=== PATIENT | male | born 1965 | race African-American/Black ===

== ENCOUNTER 2022-11-17 03:45 | Observation (INO) | payer OTHER ==
[2022-11-17 04:02] VITALS: BMI 17.4
[2022-11-17] MEDS ORDERED: methaDONE HCL 40 MG DISPERSABLE TABLET PO SCH (08:30)
[2022-11-17] MEDS ORDERED: DOXYCYCLINE HYCLATE 100 MG VIAL ONE (08:40)
[2022-11-17] MEDS ORDERED: ENOXAPARIN NA (PORCINE) 40 MG/0.4 ML DISP.SYRIN SQ ONE (08:40)
[2022-11-17] MEDS ORDERED: CEFTRIAXONE 1 GM/50 ML BAG ONE (08:41)
[2022-11-17] MEDS ORDERED: methaDONE HCL 40 MG DISPERSABLE TABLET ONE (08:43)
[2022-11-17] MEDS ORDERED: methaDONE HCL 10 MG TABLET ONE (08:44)
[2022-11-17] MEDS ORDERED: REMDESIVIR 200 MG in SODIUM CHLORIDE 250 ML IVPB ONE (09:00)
[2022-11-17] MEDS: methaDONE 80 MG, methaDONE 20 MG PO SCH (09:13)
[2022-11-17] MEDS: ENOXAPARIN NA (PORCINE) 40 MG/0.4 ML DISP.SYRIN SQ SCH (09:13)
[2022-11-17] MEDS ORDERED: DOXYCYCLINE INJECTION 100 MG in DEXTROSE 5%-WATER 100 ML IVPB SCH (10:00)
[2022-11-17] MEDS ORDERED: CEFTRIAXONE 1 GM in DEXTROSE 5%-WATER - 50 ML IVPB SCH (10:00)
[2022-11-17] MEDS: BICTEGRAV/EMTRICIT/TENOFOV (BIKTARVY) 50-200-25 MG TABLET PO SCH (10:25)
[2022-11-17 13:44] LABS: HEMATOCRIT 28.4 % (35.4-49); MCH 26.2 pg (25.7-33.7); MCHC 31.7 g/dl (32.0-35.9); MEAN CELL VOLUME 82.6 fl (80-96); MEAN PLT VOLUME 8.5 fl (7.5-11.1); PLATELET COUNT 295 10^3/uL (134-434); RBC 3.44 M/mm3 (4.00-5.60); RDW 14.2 % (11.9-15.9); WHITE BLOOD COUNT 3.9 K/mm3 (4.0-10.0)
[2022-11-17 14:17] LABS: ANISOCYTOSIS 0; HELMET CELLS 0; HOWELL-JOLLY BODIES 0; MACROCYTOSIS 0; OVALOCYTE 0; ROULEAU 0; SICKELED CELLS 0; TARGET CELLS 0; TEAR DROP CELLS 0; TOXIC GRANULATION 0
[2022-11-17 14:21] LABS: CALCIUM 8.5 mg/dL (8.5-10.1)
[2022-11-17 14:22] LABS: MAGNESIUM 1.7 mg/dL (1.8-2.4)
[2022-11-17 14:25] LABS: CREATININE 1.1 mg/dL (0.55-1.3)
[2022-11-17 14:32] LABS: ALBUMIN 2.3 g/dl (3.4-5.0); BILIRUBIN,TOTAL 0.2 mg/dL (0.2-1); BLOOD UREA NITROGEN 20.5 mg/dL (7-18); PHOSPHOROUS 2.9 mg/dL (2.5-4.9); POTASSIUM 4.1 mmol/L (3.5-5.1); TOT PROT 8.2 g/dl (6.4-8.2)
[2022-11-18] MEDS ORDERED: ACETAMINOPHEN 1000 MG/100 ML BAG IVPB PRN (00:58)
[2022-11-18] MEDS: methaDONE 80 MG, methaDONE 20 MG PO SCH (05:28)
[2022-11-18 10:15] LABS: BASO % 0.7 % (0-2.0); EOS % 1.2 % (0-4.5); HEMATOCRIT 28.2 % (35.4-49); HEMOGLOBIN 9.5 GM/dL (11.7-16.9); LYMPH % 14.3 % (8-40); MCH 26.7 pg (25.7-33.7); MCHC 33.5 g/dl (32.0-35.9); MEAN CELL VOLUME 79.8 fl (80-96); MEAN PLT VOLUME 7.7 fl (7.5-11.1); MONO % 10.2 % (3.8-10.2); NEUT % 73.6 % (42.8-82.8); PLATELET COUNT 283 10^3/uL (134-434); RBC 3.54 M/mm3 (4.00-5.60)
[2022-11-18 10:19] LABS: POTASSIUM 3.7 mmol/L (3.5-5.1)
[2022-11-18 10:28] LABS: CALCIUM 8.4 mg/dL (8.5-10.1)
[2022-11-18 10:29] LABS: ALBUMIN 2.3 g/dl (3.4-5.0); BLOOD UREA NITROGEN 17.4 mg/dL (7-18)
[2022-11-18 10:32] LABS: BILIRUBIN,TOTAL 0.4 mg/dL (0.2-1); CREATININE 1.1 mg/dL (0.55-1.3); TOT PROT 7.8 g/dl (6.4-8.2)
[2022-11-18] MEDS: ENOXAPARIN NA (PORCINE) 40 MG/0.4 ML DISP.SYRIN SQ SCH (10:54)
[2022-11-18] MEDS: CEFTRIAXONE 1 GM in DEXTROSE 5%-WATER - 50 ML IVPB SCH (10:54)
[2022-11-18] MEDS: BICTEGRAV/EMTRICIT/TENOFOV (BIKTARVY) 50-200-25 MG TABLET PO SCH (10:55)
[2022-11-18] MEDS ORDERED: POTASSIUM CHLORIDE TABS 20 MEQ TABLET.ER (FP) PO ONE (11:00)
[2022-11-18] MEDS: REMDESIVIR 100 MG in SODIUM CHLORIDE 250 ML IVPB SCH (11:58)
[2022-11-18] MEDS: valACYclovir HCL 500 MG TABLET (FP) PO SCH ×2 (13:48→21:07)
[2022-11-19] MEDS: methaDONE 80 MG, methaDONE 20 MG PO SCH (05:04)
[2022-11-19] MEDS: CEFTRIAXONE 1 GM in DEXTROSE 5%-WATER - 50 ML IVPB SCH (09:37)
[2022-11-19] MEDS: ENOXAPARIN NA (PORCINE) 40 MG/0.4 ML DISP.SYRIN SQ SCH (09:38)
[2022-11-19] MEDS: BICTEGRAV/EMTRICIT/TENOFOV (BIKTARVY) 50-200-25 MG TABLET PO SCH (09:38)
[2022-11-19] MEDS: valACYclovir HCL 500 MG TABLET (FP) PO SCH ×2 (09:38→21:52)
[2022-11-19] MEDS: REMDESIVIR 100 MG in SODIUM CHLORIDE 250 ML IVPB SCH (10:35)
[2022-11-19 11:00] LABS: BASO % 0.7 % (0-2.0); EOS % 2.7 % (0-4.5); HEMATOCRIT 25.6 % (35.4-49); HEMOGLOBIN 8.3 GM/dL (11.7-16.9); LYMPH % 22.6 % (8-40); MCH 26.3 pg (25.7-33.7); MCHC 32.6 g/dl (32.0-35.9); MEAN CELL VOLUME 80.5 fl (80-96); MEAN PLT VOLUME 7.7 fl (7.5-11.1); PLATELET COUNT 250 10^3/uL (134-434); RBC 3.17 M/mm3 (4.00-5.60); RDW 14.2 % (11.9-15.9); WHITE BLOOD COUNT 3.5 K/mm3 (4.0-10.0)
[2022-11-19 11:16] LABS: CALCIUM 8.1 mg/dL (8.5-10.1)
[2022-11-19 11:17] LABS: BLOOD UREA NITROGEN 22.1 mg/dL (7-18)
[2022-11-19 11:22] LABS: CREATININE 1.3 mg/dL (0.55-1.3)
[2022-11-19] MEDS: SULFAMETHOXAZOLE/TRIMETHOPRIM 800MG/160MG D.S. TABLET PO SCH (16:54)
[2022-11-20] MEDS ORDERED: MELATONIN 5 MG TABLETS PO ONE (00:35)
[2022-11-20] MEDS: methaDONE 80 MG, methaDONE 20 MG PO SCH (05:23)
[2022-11-20] MEDS: valACYclovir HCL 500 MG TABLET (FP) PO SCH ×2 (09:55→21:21)
[2022-11-20] MEDS: BICTEGRAV/EMTRICIT/TENOFOV (BIKTARVY) 50-200-25 MG TABLET PO SCH (09:55)
[2022-11-20] MEDS: CEFTRIAXONE 1 GM in DEXTROSE 5%-WATER - 50 ML IVPB SCH (09:55)
[2022-11-20] MEDS: SULFAMETHOXAZOLE/TRIMETHOPRIM 800MG/160MG D.S. TABLET PO SCH (09:55)
[2022-11-20] MEDS: ENOXAPARIN NA (PORCINE) 40 MG/0.4 ML DISP.SYRIN SQ SCH (09:55)
[2022-11-20 10:28] LABS: BASO % 1.2 % (0-2.0); EOS % 5.6 % (0-4.5); HEMATOCRIT 24.5 % (35.4-49); HEMOGLOBIN 7.8 GM/dL (11.7-16.9); LYMPH % 29.2 % (8-40); MCH 25.5 pg (25.7-33.7); MCHC 31.8 g/dl (32.0-35.9); MEAN CELL VOLUME 80.1 fl (80-96); MEAN PLT VOLUME 7.4 fl (7.5-11.1); MONO % 11.9 % (3.8-10.2); NEUT % 52.1 % (42.8-82.8); PLATELET COUNT 226 10^3/uL (134-434); RBC 3.06 M/mm3 (4.00-5.60); RDW 14.4 % (11.9-15.9); WHITE BLOOD COUNT 2.6 K/mm3 (4.0-10.0)
[2022-11-20 10:50] LABS: POTASSIUM 3.9 mmol/L (3.5-5.1)
[2022-11-20 10:53] LABS: CALCIUM 8.1 mg/dL (8.5-10.1)
[2022-11-20 10:54] LABS: ALBUMIN 2.2 g/dl (3.4-5.0); MAGNESIUM 1.8 mg/dL (1.8-2.4)
[2022-11-20 10:56] LABS: CREATININE 1.3 mg/dL (0.55-1.3)
[2022-11-20 10:59] LABS: PHOSPHOROUS 3.9 mg/dL (2.5-4.9)
[2022-11-20 11:01] LABS: BILIRUBIN,TOTAL 0.2 mg/dL (0.2-1); TOT PROT 7.5 g/dl (6.4-8.2)
[2022-11-21] MEDS ORDERED: MELATONIN 5 MG TABLETS PO ONE (01:20)
[2022-11-21] MEDS: methaDONE 80 MG, methaDONE 20 MG PO SCH (05:20)
[2022-11-21 08:36] LABS: BASO % 1.3 % (0-2.0); EOS % 4.9 % (0-4.5); HEMOGLOBIN 8.8 GM/dL (11.7-16.9); LYMPH % 31.5 % (8-40); MCH 26.4 pg (25.7-33.7); MCHC 31.5 g/dl (32.0-35.9); MEAN CELL VOLUME 83.8 fl (80-96); MEAN PLT VOLUME 8.5 fl (7.5-11.1); MONO % 12.2 % (3.8-10.2); NEUT % 50.1 % (42.8-82.8); PLATELET COUNT 295 10^3/uL (134-434); RBC 3.34 M/mm3 (4.00-5.60); RDW 14.3 % (11.9-15.9); WHITE BLOOD COUNT 4.1 K/mm3 (4.0-10.0)
[2022-11-21 09:02] LABS: POTASSIUM 4.7 mmol/L (3.5-5.1)
[2022-11-21 09:14] LABS: BLOOD UREA NITROGEN 32.7 mg/dL (7-18); CALCIUM 8.7 mg/dL (8.5-10.1)
[2022-11-21 09:18] LABS: CREATININE 1.4 mg/dL (0.55-1.3)
[2022-11-21] MEDS: ENOXAPARIN NA (PORCINE) 40 MG/0.4 ML DISP.SYRIN SQ SCH (10:11)
[2022-11-21] MEDS: valACYclovir HCL 500 MG TABLET (FP) PO SCH ×2 (10:11→22:39)
[2022-11-21] MEDS: SULFAMETHOXAZOLE/TRIMETHOPRIM 800MG/160MG D.S. TABLET PO SCH (10:11)
[2022-11-21] MEDS: BICTEGRAV/EMTRICIT/TENOFOV (BIKTARVY) 50-200-25 MG TABLET PO SCH (10:12)
[2022-11-21] MEDS: CEFTRIAXONE 1 GM in DEXTROSE 5%-WATER - 50 ML IVPB SCH (10:16)
[2022-11-21 15:11] VITALS: RESP 18
[2022-11-22] MEDS: methaDONE 80 MG, methaDONE 20 MG PO SCH (05:40)
[2022-11-22 09:12] LABS: EOS % 5.9 % (0-4.5); HEMOGLOBIN 7.7 GM/dL (11.7-16.9); MCH 25.9 pg (25.7-33.7); MCHC 32.1 g/dl (32.0-35.9); MEAN CELL VOLUME 80.8 fl (80-96); MEAN PLT VOLUME 7.5 fl (7.5-11.1); MONO % 12.8 % (3.8-10.2); NEUT % 47.3 % (42.8-82.8); PLATELET COUNT 265 10^3/uL (134-434); RBC 2.98 M/mm3 (4.00-5.60); RDW 14.2 % (11.9-15.9); WHITE BLOOD COUNT 3.1 K/mm3 (4.0-10.0)
[2022-11-22 09:51] LABS: POTASSIUM 4.5 mmol/L (3.5-5.1)
[2022-11-22 10:13] LABS: CALCIUM 8.7 mg/dL (8.5-10.1)
[2022-11-22 10:14] LABS: BLOOD UREA NITROGEN 33.8 mg/dL (7-18)
[2022-11-22 10:16] LABS: CREATININE 1.4 mg/dL (0.55-1.3)
[2022-11-22] MEDS: ENOXAPARIN NA (PORCINE) 40 MG/0.4 ML DISP.SYRIN SQ SCH (11:08)
[2022-11-22] MEDS: SULFAMETHOXAZOLE/TRIMETHOPRIM 800MG/160MG D.S. TABLET PO SCH (11:08)
[2022-11-22] MEDS: valACYclovir HCL 500 MG TABLET (FP) PO SCH (11:08)
[2022-11-22] MEDS: BICTEGRAV/EMTRICIT/TENOFOV (BIKTARVY) 50-200-25 MG TABLET PO SCH (11:09)
[2022-11-22] MEDS ORDERED: CEPHALEXIN MONOHYDRATE 500 MG CAPSULE (UD) PO SCH (12:00)
[2022-11-22 14:35] VITALS: BP 135/56; PULSE 60; TEMP 98.4
[2022-11-22] MEDS ORDERED: ACETAMINOPHEN 500 MG TABLET (FP) PO PRN (17:09)
== END 2022-11-22 17:16 | disposition other institution (70) ==
LOC: JER 03:45 → JERBED 05:10 → J5S 16:36
PROVIDERS: ADMIT Internal Medicine; ATTEND Internal Medicine
PROC: 3E033NZ Introduction of Analgesics, Hypnotics, Sedatives into Peripheral Vein, Percutaneous Approach (ICD-10-PCS; principal; 2022-11-17)
PROC: 3E03329 Introduction of Other Anti-infective into Peripheral Vein, Percutaneous Approach (ICD-10-PCS; 2022-11-17)
PROC: 3E023GC Introduction of Other Therapeutic Substance into Muscle, Percutaneous Approach (ICD-10-PCS; 2022-11-17)
PROC: 3E033GC Introduction of Other Therapeutic Substance into Peripheral Vein, Percutaneous Approach (ICD-10-PCS; 2022-11-17)
DX: U07.1 COVID-19 (principal); J12.82 Pneumonia due to coronavirus disease 2019; B20 Human immunodeficiency virus [HIV] disease; I10 Essential (primary) hypertension; N39.0 Urinary tract infection, site not specified; F15.10 Other stimulant abuse, uncomplicated; Z93.3 Colostomy status; F10.99 Alcohol use, unspecified with unspecified alcohol-induced disorder; R30.0 Dysuria; F12.10 Cannabis abuse, uncomplicated; N32.1 Vesicointestinal fistula; F19.90 Other psychoactive substance use, unspecified, uncomplicated; T81.89XS Other complications of procedures, not elsewhere classified, sequela; X58.XXXS Exposure to other specified factors, sequela; K43.5 Parastomal hernia without obstruction or gangrene; D64.9 Anemia, unspecified; F17.200 Nicotine dependence, unspecified, uncomplicated
CPT/HCPCS: 36415; 71250-TC; 74177-TC; 80048; 80053; 81003; 83605; 83735; 84100; 85025; 85610; 85730; 86140; 86359; 86360; 86850; 86900; 86901; 87086; 87186; 87635; 99285-25; C9399; G0378; Q9967

== ENCOUNTER 2024-04-10 15:58 | Inpatient (IN) | payer OTHER ==
[2024-04-10 17:21] VITALS: BMI 18.8
[2024-04-10] MEDS ORDERED: P-EPHED 60MG/TRIPROLIDI 2.5MG TABLET PO PRN (18:35)
[2024-04-10] MEDS ORDERED: MAG HYDROX/AL HYDROX/SIMETH 30 ML UNIT-DOSE CUP PO PRN (18:35)
[2024-04-10] MEDS ORDERED: DICYCLOMINE HCL 10 MG CAPSULE PO PRN (18:35)
[2024-04-10] MEDS ORDERED: guaiFENesin 600 MG TABLET.ER (FP) PO PRN (18:35)
[2024-04-10] MEDS ORDERED: POLYETHYLENE GLYCOL (HEALTHYLAX) 3350 17 GM PACKET PO PRN (18:35)
[2024-04-10] MEDS ORDERED: BENZONATATE 200 MG CAPSULE PO PRN (18:35)
[2024-04-10] MEDS ORDERED: NICOTINE POLACRILEX 2 MG GUM BUC PRN (18:35)
[2024-04-10] MEDS ORDERED: MAGNESIUM HYDROX 2400MG/30ML ORAL SUSPENSION 30 ML CUP PO PRN (18:35)
[2024-04-10] MEDS ORDERED: BISMUTH SUBSALICYLATE 524 MG/30 ML PO PRN (18:35)
[2024-04-10] MEDS ORDERED: IBUPROFEN 400 MG TABLET (FP) PO PRN (18:35)
[2024-04-10] MEDS ORDERED: ONDANSETRON *ODT* 4 MG TABLET SL PRN (18:35)
[2024-04-10] MEDS ORDERED: LOPERAMIDE HCL 2 MG CAPSULE PO PRN (18:35)
[2024-04-10] MEDS ORDERED: NALOXONE (NARCAN) HCL 4 MG/0.1 ML SPRAY NS PRN (18:35)
[2024-04-10] MEDS ORDERED: BENZOCAINE/MENTHOL (CHLORASEPTIC ) LOZENGE MM PRN (18:35)
[2024-04-10] MEDS ORDERED: ALBUTEROL SO4 HFA INHALER IH PRN (18:37)
[2024-04-10] MEDS: MELATONIN 5 MG TABLETS PO SCH (22:04)
[2024-04-10] MEDS: THIAMINE 100 MG TABLET PO SCH (22:04)
[2024-04-11] MEDS: IBUPROFEN 600 MG TABLET (FP) PO PRN (05:35)
[2024-04-11] MEDS: PRENATAL VITAMINS W/ FOLIC ACID TABLET (FP) PO SCH (09:22)
[2024-04-11] MEDS: methaDONE HCL 10 MG TABLET (FOR DETOX USE ONLY) PO ONE (09:22)
[2024-04-11] MEDS: NICOTINE POLACRILEX 2 MG LOZENGE BC PRN (12:52)
[2024-04-11 13:43] LABS: HEMATOCRIT 29.8 % (35.4-49); HEMOGLOBIN 9.7 GM/dL (11.7-16.9); MCH 27.8 pg (25.7-33.7); MCHC 32.4 g/dl (32.0-35.9); MEAN CELL VOLUME 85.8 fl (80-96); MEAN PLT VOLUME 7.2 fl (7.5-11.1); PLATELET COUNT 265 10^3/uL (134-434); RBC 3.47 M/mm3 (4.00-5.60); RDW 13.1 % (11.9-15.9); WHITE BLOOD COUNT 3.3 K/mm3 (4.0-10.0)
[2024-04-11 13:48] LABS: CHLORIDE 103 mmol/L (98-107); POTASSIUM 3.8 mmol/L (3.5-5.1); SODIUM 137 mmol/L (136-145)
[2024-04-11 13:55] LABS: ALBUMIN 2.9 g/dl (3.4-5.0)
[2024-04-11 13:56] LABS: BLOOD UREA NITROGEN 29.3 mg/dL (7-18)
[2024-04-11 13:58] LABS: ANION GAP 7 mmol/L (4-13); CALCIUM 8.7 mg/dL (8.5-10.1); CO2 26 mmol/L (21-32); SGOT/AST 26 U/L (15-37); SGPT/ALT 13 U/L (13-61)
[2024-04-11 13:59] LABS: CREATININE 1.3 mg/dL (0.55-1.3); GLUCOSE,RANDOM 94 mg/dL (74-106)
[2024-04-11 14:00] LABS: BILIRUBIN,TOTAL 0.3 mg/dL (0.2-1); TOT PROT 8.6 g/dl (6.4-8.2)
[2024-04-11 14:01] LABS: ALK PHOS 67 U/L (45-117)
[2024-04-11] MEDS: amLODIPine BESYLATE 10 MG TABLET (FP) PO SCH (15:46)
[2024-04-11] MEDS: NICOTINE 14 MG/24 HOURS TOPICAL PATCH TD SCH (15:46)
[2024-04-11] MEDS: SULFAMETHOXAZOLE/TRIMETHOPRIM 800MG/160MG D.S. TABLET PO SCH (15:47)
[2024-04-11] MEDS: BICTEGRAV/EMTRICIT/TENOFOV (BIKTARVY) 50-200-25 MG TABLET PO SCH (15:47)
[2024-04-11] MEDS: cloNIDine HCL 0.1 MG TABLET PO PRN (17:34)
[2024-04-12] MEDS: ACETAMINOPHEN 325 MG TABLET (FP) PO PRN (18:07)
[2024-04-13] MEDS: methaDONE HCL 10 MG TABLET (FOR DETOX USE ONLY) PO ONE (09:04)
[2024-04-13] MEDS ORDERED: TRIAMCINOLONE ACET 0.5% OINT 15 GM TUBE TP ONE (17:16)
[2024-04-13] MEDS: TRIAMCINOLONE ACET 0.5% OINT 15 GM TUBE TP SCH (18:55)
[2024-04-15] MEDS: methaDONE HCL 10 MG TABLET (FOR DETOX USE ONLY) PO ONE (09:19)
[2024-04-15] MEDS: valACYclovir HCL 500 MG TABLET (FP) PO SCH (12:13)
[2024-04-16 06:13] VITALS: BP 149/66; PULSE 73; RESP 17; TEMP 98.2
[2024-04-16] MEDS: BICTEGRAV/EMTRICIT/TENOFOV (BIKTARVY) 50-200-25 MG TABLET PO SCH (07:18)
[2024-04-16] MEDS: NALOXONE (NYS OPIOID OVERDOSE PROGRAM) 4 MG/0.1 ML SPRAY NS SCH (09:00)
== END 2024-04-16 09:51 | disposition home or self-care (01) | DRG 773 ==
LOC: YASAS 15:58 → Y3N 20:38
PROVIDERS: ADMIT Allergy & Immunology; ATTEND Surgery
PROC: HZ2ZZZZ Detoxification Services for Substance Abuse Treatment (ICD-10-PCS; principal; 2024-04-10)
DX: F11.23 Opioid dependence with withdrawal (principal); F10.20 Alcohol dependence, uncomplicated; F14.20 Cocaine dependence, uncomplicated; F12.20 Cannabis dependence, uncomplicated; F17.210 Nicotine dependence, cigarettes, uncomplicated; Z21 Asymptomatic human immunodeficiency virus [HIV] infection status; I10 Essential (primary) hypertension; J45.909 Unspecified asthma, uncomplicated; Z87.01 Personal history of pneumonia (recurrent); Z93.3 Colostomy status
CPT/HCPCS: 36415; 80053; 80305; 80307; 85027; 86780; 93005; 93010

== ENCOUNTER 2024-05-01 09:51 | Inpatient (IN) | payer OTHER ==
[2024-05-01] MEDS ORDERED: MAG HYDROX/AL HYDROX/SIMETH 30 ML UNIT-DOSE CUP PO PRN (10:33)
[2024-05-01] MEDS ORDERED: DICYCLOMINE HCL 10 MG CAPSULE PO PRN (10:33)
[2024-05-01] MEDS ORDERED: LOPERAMIDE HCL 2 MG CAPSULE PO PRN (10:33)
[2024-05-01] MEDS ORDERED: BISMUTH SUBSALICYLATE 524 MG/30 ML PO PRN (10:33)
[2024-05-01] MEDS ORDERED: POLYETHYLENE GLYCOL (HEALTHYLAX) 3350 17 GM PACKET PO PRN (10:33)
[2024-05-01] MEDS ORDERED: MAGNESIUM HYDROX 2400MG/30ML ORAL SUSPENSION 30 ML CUP PO PRN (10:33)
[2024-05-01] MEDS ORDERED: guaiFENesin 600 MG TABLET.ER (FP) PO PRN (10:33)
[2024-05-01] MEDS ORDERED: IBUPROFEN 400 MG TABLET (FP) PO PRN (10:33)
[2024-05-01] MEDS ORDERED: NICOTINE 21 MG/24 HOURS TOPICAL PATCH ONE (11:24)
[2024-05-01] MEDS ORDERED: methaDONE HCL 10 MG TABLET (FOR DETOX USE ONLY) ONE (11:24)
[2024-05-01] MEDS ORDERED: PRENATAL VITAMINS W/ FOLIC ACID TABLET (FP) PO ONE (11:25)
[2024-05-01] MEDS: NICOTINE 21 MG/24 HOURS TOPICAL PATCH TD SCH (11:32)
[2024-05-01] MEDS: PRENATAL VITAMINS W/ FOLIC ACID TABLET (FP) PO SCH (11:32)
[2024-05-01] MEDS: methaDONE HCL 10 MG TABLET PO ONE (11:34)
[2024-05-01] MEDS ORDERED: NALOXONE (NARCAN) HCL 4 MG/0.1 ML SPRAY NS PRN (12:00)
[2024-05-01] MEDS: ALBUTEROL SO4 HFA INHALER IH SCH (12:13)
[2024-05-01] MEDS: IBUPROFEN 600 MG TABLET (FP) PO PRN (12:13)
[2024-05-01] MEDS ORDERED: methaDONE HCL 10 MG TABLET PO PRN (12:33)
[2024-05-01 12:34] VITALS: BMI 18.5
[2024-05-01] MEDS: cloNIDine HCL 0.1 MG TABLET PO SCH (13:18)
[2024-05-01] MEDS: THIAMINE 100 MG TABLET PO SCH (21:38)
[2024-05-01] MEDS: MELATONIN 5 MG TABLETS PO SCH (21:38)
[2024-05-01] MEDS: METHOCARBAMOL 500 MG TABLET PO PRN (21:38)
[2024-05-02] MEDS: BICTEGRAV/EMTRICIT/TENOFOV (BIKTARVY) 50-200-25 MG TABLET PO SCH (08:07)
[2024-05-02] MEDS: SULFAMETHOXAZOLE/TRIMETHOPRIM 800MG/160MG D.S. TABLET PO SCH (09:39)
[2024-05-02] MEDS: valACYclovir HCL 500 MG TABLET (FP) PO SCH (09:39)
[2024-05-02] MEDS: amLODIPine BESYLATE 10 MG TABLET (FP) PO SCH (09:39)
[2024-05-02] MEDS: methaDONE 40 MG, methaDONE 10 MG PO ONE (09:43)
[2024-05-02 13:54] LABS: HEMATOCRIT 26.4 % (35.4-49); HEMOGLOBIN 8.7 GM/dL (11.7-16.9); MCH 28.3 pg (25.7-33.7); MEAN CELL VOLUME 85.8 fl (80-96); MEAN PLT VOLUME 7.7 fl (7.5-11.1); PLATELET COUNT 151 10^3/uL (134-434); RBC 3.07 M/mm3 (4.00-5.60); RDW 13.7 % (11.9-15.9)
[2024-05-02] MEDS: hydrOXYzine PAMOATE 25 MG CAPSULE (FP) PO PRN (14:51)
[2024-05-02 15:35] LABS: POTASSIUM 4.2 mmol/L (3.5-5.1)
[2024-05-02 15:37] LABS: CALCIUM 8.5 mg/dL (8.5-10.1)
[2024-05-02 15:38] LABS: ALBUMIN 2.9 g/dl (3.4-5.0); BLOOD UREA NITROGEN 31.5 mg/dL (7-18)
[2024-05-02 15:41] LABS: CREATININE 1.5 mg/dL (0.55-1.3)
[2024-05-02 15:43] LABS: BILIRUBIN,TOTAL 0.4 mg/dL (0.2-1); TOT PROT 8.3 g/dl (6.4-8.2)
[2024-05-02] MEDS: BENZOCAINE/MENTHOL (CHLORASEPTIC ) LOZENGE MM PRN (17:52)
[2024-05-02] MEDS: BENZONATATE 200 MG CAPSULE PO PRN (21:30)
[2024-05-03] MEDS ORDERED: cloNIDine HCL 0.1 MG TABLET PO PRN
[2024-05-03] MEDS: methaDONE 40 MG, methaDONE 20 MG PO ONE ×2 (09:40→13:44)
[2024-05-03] MEDS: methaDONE 40 MG, methaDONE 10 MG PO ONE (13:53)
[2024-05-03] MEDS: methaDONE HCL 40 MG DISPERSABLE TABLET PO ONE (13:55)
[2024-05-03] MEDS: ONDANSETRON *ODT* 4 MG TABLET SL PRN (14:40)
[2024-05-04] MEDS: methaDONE 40 MG, methaDONE 30 MG PO ONE (10:31)
[2024-05-05] MEDS: ACETAMINOPHEN 325 MG TABLET (FP) PO PRN (06:13)
[2024-05-05] MEDS ORDERED: methaDONE HCL 40 MG DISPERSABLE TABLET PO ONE ×2 (10:00)
[2024-05-05] MEDS: NALOXONE (NYS OPIOID OVERDOSE PROGRAM) 4 MG/0.1 ML SPRAY NS SCH (15:55)
[2024-05-06 09:06] VITALS: PULSE 75; RESP 17
[2024-05-06] MEDS ORDERED: methaDONE 80 MG, methaDONE 10 MG PO ONE (10:00)
[2024-05-06] MEDS ORDERED: methaDONE HCL 40 MG DISPERSABLE TABLET PO ONE (10:00)
[2024-05-06 13:01] VITALS: BP 137/91; TEMP 98.1
== END 2024-05-06 14:00 | disposition home or self-care (01) | DRG 773 ==
LOC: YASAS 09:51 → Y6N 10:54
PROVIDERS: ADMIT Allergy & Immunology; ATTEND Surgery
PROC: HZ2ZZZZ Detoxification Services for Substance Abuse Treatment (ICD-10-PCS; principal; 2024-05-01)
DX: F11.23 Opioid dependence with withdrawal (principal); F10.230 Alcohol dependence with withdrawal, uncomplicated; F14.20 Cocaine dependence, uncomplicated; F12.20 Cannabis dependence, uncomplicated; F17.210 Nicotine dependence, cigarettes, uncomplicated; F19.282 Other psychoactive substance dependence with psychoactive substance-induced sleep disorder; F19.20 Other psychoactive substance dependence, uncomplicated; Z21 Asymptomatic human immunodeficiency virus [HIV] infection status; B00.9 Herpesviral infection, unspecified; D64.9 Anemia, unspecified; I10 Essential (primary) hypertension; J45.20 Mild intermittent asthma, uncomplicated; Z93.3 Colostomy status
CPT/HCPCS: 36415; 80053; 80305; 80307; 82540; 84520; 85027; 86780; 93005; 93010; Q0162